=== PATIENT | female | born 1975 | race Caucasian/White ===

== ENCOUNTER 2021-07-28 19:19 | Emergency (ER) | payer BC ==
[~2021-07-28] VITALS: Ht 154.9 cm; Wt 71.7 kg
[2021-07-28 19:37] VITALS: BP 121/77
--- NOTE | 2021-07-28 19:48 | NUR ---
PT TAKEN TO BED 2
--- NOTE | 2021-07-28 19:55 | NUR ---
46 YO/F BIB SELF W C/O RLQ ABDOMINAL PAIN PRESSURE LIKE NON-RAD X4 DAYS, + BL LEG SWELLING X 3 DAYS, + ABDOMINAL DISTENTION W SOB. PT RECENTLY DIAGNOSED W CIRRHOSIS AND HAD FLUID DRAINED FROM ABDOMEN IN MARCH. PT REPORTS SHE WAS REFERED FROM URGENT CARE TO BE EVALUATED IN ER. PT REPORTS SHE NORMALLY GETS LEG SWELLING WHEN STANDING FOR WORK BUT SWELLING GOES DOWN ON HER DAYS OFF AND HAS NOT GONE DONE THIS TIME. PT DENIES ANY CHEST PAIN, FEVERS/CHILLS, N/V/D/C. PT TOOK TYLENOL X45 MINS AGO W MILD RELIEF OF PAIN. PT LAYING IN BED, PLACED IN GOWN, CONNECTED TO MONITOR W VSS. BED LOCKED IN LOWEST POSITION, X1 SIDERAIL UP. PT DOES NOT WANT ANY PAIN MEDICATION AT THIS TIME. PMH:CIRRHOSIS ALLERGIES: DENIES
--- NOTE | 2021-07-28 21:11 | NUR ---
PT TAKEN TO CT
--- NOTE | 2021-07-28 21:19 | NUR ---
PT RETURN FROM CT
[2021-07-28 21:29] LABS: BASOPHILS # (AUTO) 0.1 K/uL (0.00-0.22); EOSINOPHILS # (AUTO) 0.2 K/uL (0-0.4); EOSINOPHILS % (AUTO) 2.1 % (0.0-4.0); HEMATOCRIT 32.9 % (36-48); HEMOGLOBIN 11.2 g/dL (12.0-16.0); MEAN CORPUSCULAR HEMOGLOBIN 35 pg (27-31); MEAN CORPUSCULAR HGB CONC 34 g/dL (33-37); MEAN CORPUSCULAR VOLUME 103.3 fL (80-94); MONOCYTES # (AUTO) 0.8 K/uL (0.8-1.0); NEUTROPHILS # (AUTO) 4.5 K/uL (1.8-7.7); NEUTROPHILS % (AUTO) 59.9 % (42.2-75.2); PLATELET COUNT (AUTO) 127 K/uL (140-450); RED BLOOD CELL COUNT(AUTO) 3.18 MIL/uL (4.20-5.40); RED CELL DISTRIBUTION WIDTH 15.6 % (11.6-13.7); WHITE BLOOD COUNT (AUTO) 7.5 K/uL (4.8-10.8)
[2021-07-28 21:45] LABS: ALBUMIN 2.2 g/dL (3.4-5.0); ANION GAP 10.2 (8-16); CARBON DIOXIDE 27.5 mmol/L (21-32); CREATININE 0.8 mg/dL (0.6-1.3); POTASSIUM 3.7 mmol/L (3.5-5.1)
--- NOTE | 2021-07-28 23:27 | NUR ---
PT APPEARS TO BE RESTING W EYES CLOSED IN L LATERAL POSITION. BREATHING EVEN AND UNLABORED. NAD NOTED, WILL CONTNIUE TO MONITOR. AWAITING LAB RESULTS.
[2021-07-28 23:40] LABS: APPEARANCE,URINE CLEAR (CLEAR); BILIRUBIN,URINE NEGATIVE (NEGATIVE); BLOOD, URINE NEGATIVE (NEGATIVE); COLOR,URINE YELLOW (YELLOW); LEUKOCYTE ESTERASE ,URINE 1+ (NEGATIVE); NITRITE, URINE NEGATIVE (NEGATIVE); UGLUCOSE NEGATIVE (NEGATIVE)
[2021-07-28 23:55] LABS: RBC,URINE 0-5 /HPF (0-5)
--- NOTE | 2021-07-29 00:22 | NUR ---
PT REPORTS PAIN IMPROVEMENT.
[2021-07-29] MEDS ORDERED: SULF-59 PO (00:43)
[2021-07-29 01:10] VITALS: BP 99/60
--- NOTE | 2021-07-29 01:10 | NUR ---
Patient discharged with v/s stable. Written and verbal after care instructions given and explained. Patient alert, oriented and verbalized understanding of instructions. Ambulatory with steady gait. All questions addressed prior to discharge. ID band removed. Patient advised to follow up with PMD. Rx of BACTRIN DS, given. Patient educated on indication of medication including possible reaction and side effects. Opportunity to ask questions provided and answered.
== END 2021-07-29 01:10 | disposition home or self-care (01) ==
LOC: MED 19:19
DX: N39.0 Urinary tract infection, site not specified (principal); R17 Unspecified jaundice; R60.0 Localized edema; M54.6 Pain in thoracic spine; Z20.822 Contact with and (suspected) exposure to COVID-19; Z87.19 Personal history of other diseases of the digestive system; Z90.49 Acquired absence of other specified parts of digestive tract
CPT/HCPCS: 36415; 80053; 81001; 81025; 83605; 83690; 85025; 87040; 87086; 99285